=== PATIENT | female | born 1950 | race Caucasian/White ===

== ENCOUNTER 2017-05-09 10:02 | Outpatient (CLI) | payer MEDICARE ==
[2017-05-09 10:42] LABS: eGFR (African) > 60; eGFR (Non-African) > 60
== END 2017-05-09 10:03 ==
LOC: LAB 10:02
PROVIDERS: ATTEND Family Medicine
DX: I10 Essential (primary) hypertension (principal)
CPT/HCPCS: 36415; 80053; 80061

== ENCOUNTER 2017-11-06 15:21 | Outpatient (CLI) | payer MEDICARE ==
--- NOTE | 2017-11-06 16:59 | Diagnostic Imaging Report ---
CAROLYNN HUFFMAN [facility] [id number] [facility] [address] [address] Report Submission Date: Nov 06, 2017 4:51:40 PM INSTALLATION TECHNICIAN Patient Study Name: MARCELA MEI Date: Nov 06, 2017 3:46:24 PM INSTALLATION TECHNICIAN Modality Type: DX Gender: F Description: SPINE : 50 Institution: [facility] Physician: CAROLYNN HUFFMAN Examination: Plain film lumbar spine History: MID BACK PAIN, FELL IN HOLE LAST WEEK (Hx) Findings: 3 views of the lumbar spine demonstrate normal height. No anterior compression. Scoliotic curvature. Mild facet degenerative changes. No soft tissue abnormalities. Right upper quadrant surgical clips. Mild atherosclerotic disease involving the abdominal aorta. Impression: Curvature and mild degenerative changes. No compression deformity. Electronically signed on Nov 06, 2017 4:51:40 PM INSTALLATION TECHNICIAN by: Peter DE LOS SANTOS
== END 2017-11-06 15:30 ==
LOC: RAD 15:21
PROVIDERS: ATTEND Family Medicine
DX: M54.9 Dorsalgia, unspecified (principal)
CPT/HCPCS: 72100

== ENCOUNTER 2018-05-09 09:04 | Outpatient (CLI) | payer MEDICARE, OTHER ==
[2018-05-09 09:51] LABS: eGFR (Non-African) > 60
== END 2018-05-09 09:06 ==
LOC: LAB 09:04
PROVIDERS: ATTEND Family Medicine
DX: I10 Essential (primary) hypertension (principal)
CPT/HCPCS: 36415; 80053; 80061

== ENCOUNTER 2019-05-16 08:55 | Outpatient (CLI) | payer MEDICARE, OTHER ==
--- NOTE | 2019-05-22 09:30 | Diagnostic Imaging Report ---
CAROLYNN HUFFMAN [facility] [address] [address] Report Submission Date: May 16, 2019 9:35:42 PM CDT Patient Study Name: MARCELA MEI Date: May 16, 2019 12:00:00 AM CDT Modality Type: DEXA\OT Gender: F Description: DEXA : 50 Institution: [facility] Physician: CAROLYNN HUFFMAN Examination: Bone density History: Assess bone mineralization Comparison exams: 17 July 2012 Technique: DEXA protocol Findings: Average bone mineral density from L1 through L4: 1.017 grams cm2. T score: -1.4 Average bone mineral density of the left femoral neck: 0.802 grams cm2. T score: -2.1 Average bone mineral density of the right femoral neck: 0.799 grams cm2. T score: -2.2 Impression: Lumbar spine and bilateral femoral neck osteopenia. Electronically signed on May 16, 2019 9:35:42 PM CDT by: Peter DE LOS SANTOS
== END 2019-05-16 08:57 ==
LOC: RAD 08:55
PROVIDERS: ATTEND Family Medicine
DX: Z78.0 Asymptomatic menopausal state (principal)
CPT/HCPCS: 77080